=== PATIENT | female | born 1975 | race Caucasian/White ===

== ENCOUNTER 2023-12-09 05:34 | Emergency (ER) | payer BC ==
[2023-12-09] MEDS ORDERED: Metoclopramide HCl 10 MG (2 mL) VIAL ONE (05:58)
[2023-12-09 06:12] LABS: #Basophils 0.07 10x3/uL (0.0-0.2); #Eosinphils 0.12 10x3/uL (0.0-0.5); #Monocytes 0.92 10x3/uL (0.0-1.1); #Neutrophils 13.64 10x3/uL (1.5-8.4); %Basophils 0.4 % (0.0-2.0); %Eosinophils 0.7 % (0.0-6.0); %Monocytes 5.5 % (0.0-10.0); Hematocrit 45.8 % (34.9-44.5); Hemoglobin 16.4 g/dL (12.0-15.5); Mean Corpuscular HGB CONC 35.8 g/dL (32.0-36.0); Mean Corpuscular Hemoglobin 30.8 pg (27.0-33.0); Mean Corpuscular Volume 86.1 fL (81.6-98.3); Platelet Count 329 10x3/uL (150-450); RBC Distribution Width 12.1 % (11.5-14.5); Red Blood Cell (RBC) Count 5.32 10x6/uL (3.90-5.03); White Blood Cell (WBC) Count 16.8 10x3/uL (3.5-10.5)
[2023-12-09] MEDS ORDERED: Glycopyrrolate 0.2 MG/ML 5 ML SYRINGE SLOW IVP SCH (06:15)
[2023-12-09 06:18] LABS: BHCG - Serum Negative (NEGATIVE); Pregs Control Background? CLEAR/WHITE (CLR/WHITE); Pregs Control Bar Appear? YES (CONTROL BAR)
[2023-12-09 06:18] LABS: Actual Bicarbonate (HCO3v) 20.8 mEq/L (22-28); Analyzer IN Cardio CS ER; Base Excess -0.4 mEq/L (-2 - +2); Chloride (VBG) 100 mmol/L (98-106); Hematocrit-VBG 51 % (36.0-47.0); Hemoglobin (Hb) 17.4 g/dL (11.7-16.0); Potassium (VBG) 3.65 mmol/L (3.70-5.30); Puncture Site Other Site; RapidComm Collect By RN; Sodium 137 mmol/L (133-146); pH (venous) 7.509 (7.32-7.43)
[2023-12-09 06:28] LABS: ALT (SGPT) 32 U/L (8-55); AST (SGOT) 21 U/L (5-34); Alkaline Phosphatase 72 U/L (40-110); Anion Gap 19 mmol/L (10-20); BUN (Urea Nitrogen) 8 mg/dL (7.0-18.7); Bilirubin, Total 0.7 mg/dL (0.2-1.2); Calc. Creatinine Clearance 0 mL/min (70-130); Calcium 9.7 mg/dL (7.8-10.44); Carbon Dioxide 17 mmol/L (22-29); Chloride 104 mmol/L (98-107); Estimated GFR 85; Globulin 3.2 g/dL (2.4-3.5); Glucose 92 mg/dL (70-105); Lipase 92 U/L (8-78); Potassium 3.8 mmol/L (3.5-5.1); Protein, Total 7.2 g/dL (6.0-8.3); Sodium 136 mmol/L (136-145)
[2023-12-09] MEDS ORDERED: Ketorolac Tromethamine 30 MG (1 mL) VIAL ONE (08:08)
[2023-12-09] MEDS ORDERED: Famotidine/PF 20 mg/2ml Vial ONE (09:18)
[2023-12-09] MEDS ORDERED: Dicyclomine 20 MG/2 ML VIAL ONE (09:24)
[2023-12-09] MEDS ORDERED: Promethazine HCl 12.5 MG in Sodium Chloride 0.9% 50 ML IVPB SCH (09:30)
[2023-12-09] MEDS ORDERED: Iopamidol 300 61% 100 ML VIAL FS ONE (10:14)
== END 2023-12-09 11:30 | disposition home or self-care (01) ==
LOC: CSHERS 05:34
DX: K29.00 Acute gastritis without bleeding (principal); E86.0 Dehydration; R11.2 Nausea with vomiting, unspecified; E03.9 Hypothyroidism, unspecified; Z79.899 Other long term (current) drug therapy
CPT/HCPCS: 74018; 74177; 80053; 82010; 82805; 83605; 83690; 84703; 85025; 96372; 96374; 96375; J1885; J2550; J2765; Q9967